=== PATIENT | female | born 1960 | race Asian ===

== ENCOUNTER 2018-01-15 09:13 | Emergency (ER) | payer OTHER ==
[~2018-01-15] VITALS: Ht 157.5 cm; Wt 84.8 kg
[~2018-01-15 09:13] MED LIST: BENTYL10 MG PO; CARV25TA PO; CIPRO500 MG PO; CRESTOR20 MG PO; CYCL10TA35 PO; DELZICOL400 MG PO; FURO40TA93 PO; KETO10TA34 PO; KLOR-CON M1010 MEQ PO; LOMOTIL2.5 MG OR; ONDA4TAB3 PO; PANTPAK PO; ROPINIROLE0.25 MG PO; SPIR25TA66 PO; XARELTO20 MG PO
[2018-01-15 10:22] LABS: PLATELET COUNT 333 K/uL (152-353)
[2018-01-15 10:42] LABS: POTASSIUM 5.1 mmol/L (3.6-5.2); SODIUM 139 mmol/L (136-145)
[2018-01-15 11:29] VITALS: BP 114/70; TEMP 97.5
== END 2018-01-15 11:34 | disposition home or self-care (01) ==
LOC: ED 09:13
PROVIDERS: Emergency Medicine
DX: R00.2 Palpitations (principal)
CPT/HCPCS: 80053; 82550; 82553; 84484; 85027; 93005; 99283

== ENCOUNTER 2018-01-15 11:37 | Outpatient (CLI) | payer OTHER | END 2018-01-15 20:19 | disposition home or self-care (01) | LOC: LABW 11:37 | DX: M10.071 Idiopathic gout, right ankle and foot (principal) | CPT/HCPCS: 36415; 84550 ==

== ENCOUNTER 2018-07-28 14:10 | Outpatient (CLI) | payer OTHER ==
[2018-07-28 15:47] LABS: PLATELET COUNT 302 K/uL (152-353)
== END 2018-07-28 19:20 | disposition home or self-care (01) ==
LOC: LABW 14:10
PROVIDERS: Internal Medicine Nephrology
DX: I63.89 Other cerebral infarction (principal); I12.9 Hypertensive chronic kidney disease with stage 1 through stage 4 chronic kidney disease, or unspecified chronic kidney disease; N18.3 Chronic kidney disease, stage 3 (moderate); I50.89 Other heart failure; I82.409 Acute embolism and thrombosis of unspecified deep veins of unspecified lower extremity; E11.9 Type 2 diabetes mellitus without complications; K21.9 Gastro-esophageal reflux disease without esophagitis; E78.49 Other hyperlipidemia; E66.8 Other obesity; K51.80 Other ulcerative colitis without complications
CPT/HCPCS: 36415; 80053; 81000; 82570; 83970; 84155; 85027

== ENCOUNTER 2018-08-23 00:35 | Inpatient (IN) | payer OTHER ==
[2018-08-23] VITALS (9 sets, daily range): BP systolic 84–139; BP diastolic 56–84; TEMP 97.2–98.2; Ht 157.5 cm; Wt 61.7 kg
[~2018-08-23] VITALS: Ht 157.5 cm; Wt 61.7 kg
[2018-08-23 01:06] LABS: PLATELET COUNT 336 K/uL (152-353)
[2018-08-23 01:13] LABS: SODIUM 141 mmol/L (136-145)
[2018-08-23 01:30] LABS: PARTIAL THROMBOPLASTIN TIME 25.4 SECONDS (24.5-33.6)
[2018-08-23] MEDS ORDERED: LIPITOR80 MG PO (06:28)
[2018-08-23] MEDS ORDERED: MESALAMINE PO (06:28)
[2018-08-23] MEDS ORDERED: CYCL10TA35 PO (06:29)
[2018-08-23] MEDS ORDERED: CARV25TA PO (06:30)
[2018-08-23] MEDS ORDERED: BUSPIRONE7.5 MG PO (06:31)
[2018-08-23] MEDS ORDERED: HYOSCYAMINE0.125 M2 PO (06:32)
[2018-08-23] MEDS ORDERED: TESSALON PER100 MG PO (06:33)
[2018-08-23] MEDS ORDERED: TRAMADOL HYDROC50 MG PO (06:33)
[2018-08-23] MEDS ORDERED: HYDR10TA47A PO (06:34)
[2018-08-23] MEDS ORDERED: ENTRESTO 24-261 TAB PO (06:34)
[2018-08-23] MEDS ORDERED: DICYCLOMINE HYD20 MG PO (06:35)
[2018-08-23] MEDS ORDERED: RANITIDINE HYD300 MG PO (06:35)
[2018-08-23] MEDS ORDERED: EZETIMIBE10 MG PO (06:36)
[2018-08-23] MEDS ORDERED: ONDANSETRON4 M2 PO (06:36)
[2018-08-23 09:06] LABS: POTASSIUM 3.5 mmol/L (3.6-5.2); SODIUM 140 mmol/L (136-145)
[2018-08-24] VITALS (69 sets, daily range): BP systolic 63–117; BP diastolic 31–73; TEMP 97.2–98.8
[2018-08-24 06:21] LABS: PLATELET COUNT 319 K/uL (152-353)
[2018-08-24 06:47] LABS: POTASSIUM 3.9 mmol/L (3.6-5.2)
[2018-08-25] VITALS (70 sets, daily range): BP systolic 82–108; BP diastolic 53–78; TEMP 97.6–98.8
[2018-08-25 05:30] LABS: PLATELET COUNT 294 K/uL (152-353)
[2018-08-25 06:13] LABS: POTASSIUM 4.2 mmol/L (3.6-5.2)
[2018-08-26] VITALS (9 sets, daily range): BP systolic 100–111; BP diastolic 64–81; TEMP 97.7–98.8
[2018-08-26 05:37] LABS: PLATELET COUNT 240 K/uL (152-353)
[2018-08-26 05:56] LABS: POTASSIUM 3.7 mmol/L (3.6-5.2)
== END 2018-08-26 15:00 | disposition home or self-care (01) | DRG 291 ==
LOC: ED 00:35 → MED/SURG 02:05 → ICU 08-24 04:05 → MED/SURG 08-24 04:06 → ICU 08-24 04:07
PROVIDERS: Student in an Organized Health Care Education/Training Program; ADMIT Family Medicine
DX: I13.0 Hypertensive heart and chronic kidney disease with heart failure and stage 1 through stage 4 chronic kidney disease, or unspecified chronic kidney disease (principal); I50.33 Acute on chronic diastolic (congestive) heart failure; N39.0 Urinary tract infection, site not specified; N18.3 Chronic kidney disease, stage 3 (moderate); I49.8 Other specified cardiac arrhythmias; D64.89 Other specified anemias; E78.00 Pure hypercholesterolemia, unspecified; K21.9 Gastro-esophageal reflux disease without esophagitis; M79.7 Fibromyalgia; Z86.711 Personal history of pulmonary embolism; I95.89 Other hypotension; Z86.718 Personal history of other venous thrombosis and embolism; Z79.01 Long term (current) use of anticoagulants
CPT/HCPCS: 36415; 80048; 80053; 81000; 82550; 83735; 83880; 84443; 84484; 85027; 85379; 85610; 85730; 87086; 87088; 93005; 94760; 96366; 96374; 99284; J1265; J1650; J1940

== ENCOUNTER 2018-10-29 11:13 | Outpatient (CLI) | payer OTHER ==
[~2018-10-29 11:13] MED LIST changes: +BUSPIRONE7.5 MG PO; +DICYCLOMINE HYD20 MG PO; +ENTRESTO 24-261 TAB PO; +EZETIMIBE10 MG PO; +HYDR10TA47A PO; +HYOSCYAMINE0.125 M2 PO; +LIPITOR80 MG PO; +MESALAMINE PO; +ONDANSETRON4 M2 PO; +RANITIDINE HYD300 MG PO; +TESSALON PER100 MG PO; +TRAMADOL HYDROC50 MG PO
== END 2018-10-29 20:12 | disposition home or self-care (01) ==
LOC: LABW 11:13
DX: M10.071 Idiopathic gout, right ankle and foot (principal)
CPT/HCPCS: 36415; 84550; 85651

== ENCOUNTER 2018-11-04 09:40 | Outpatient (CLI) | payer OTHER | END 2018-11-04 23:12 | disposition home or self-care (01) | LOC: RAD 09:40 | DX: M25.512 Pain in left shoulder (principal); M25.522 Pain in left elbow ==

== ENCOUNTER 2019-01-27 17:49 | Emergency (ER) | payer OTHER ==
[~2019-01-27] VITALS: Ht 157.5 cm; Wt 83.0 kg
[2019-01-27 19:12] LABS: PLATELET COUNT 293 K/uL (152-353)
[2019-01-27 19:23] LABS: POTASSIUM 3.9 mmol/L (3.6-5.2); SODIUM 140 mmol/L (136-145)
[2019-01-27 20:05] VITALS: BP 101/65; TEMP 97.8
== END 2019-01-27 20:05 | disposition home or self-care (01) ==
LOC: ED 17:49
PROVIDERS: Family Medicine
DX: I95.89 Other hypotension (principal); I50.9 Heart failure, unspecified; R00.0 Tachycardia, unspecified
CPT/HCPCS: 36415; 80053; 81000; 82550; 83880; 84484; 85027; 93005; 99283

== ENCOUNTER 2020-06-02 15:48 | Emergency (ER) | payer OTHER ==
[~2020-06-02] VITALS: Ht 157.5 cm; Wt 74.4 kg
[2020-06-02 16:03] VITALS: TEMP 97
[2020-06-02 17:07] VITALS: BP 94/62
== END 2020-06-02 17:08 | disposition home or self-care (01) ==
LOC: ED 15:48
DX: M54.5 Low back pain (principal); G89.29 Other chronic pain; M54.16 Radiculopathy, lumbar region
CPT/HCPCS: 96372; 99283; J1885; J2360

== ENCOUNTER 2020-12-07 18:02 | Emergency (ER) | payer OTHER ==
[~2020-12-07] VITALS: Ht 157.5 cm; Wt 72.6 kg
[2020-12-07 19:13] VITALS: BP 111/78; TEMP 98.1
== END 2020-12-07 19:13 | disposition home or self-care (01) ==
LOC: ED 18:02
DX: M54.32 Sciatica, left side (principal); M54.31 Sciatica, right side; M79.604 Pain in right leg
CPT/HCPCS: 96372; 99283; J1885

== ENCOUNTER 2020-12-14 05:51 | Outpatient (CLI) | payer OTHER ==
[2020-12-14 06:37] LABS: PLATELET COUNT 285 K/uL (152-353)
[2020-12-14 07:26] LABS: POTASSIUM 4.7 mmol/L (3.6-5.2)
== END 2020-12-14 19:13 | disposition home or self-care (01) ==
LOC: LABW 05:51
PROVIDERS: ATTEND Internal Medicine
DX: I12.9 Hypertensive chronic kidney disease with stage 1 through stage 4 chronic kidney disease, or unspecified chronic kidney disease (principal); N18.30 Chronic kidney disease, stage 3 unspecified; E78.49 Other hyperlipidemia; E11.9 Type 2 diabetes mellitus without complications
CPT/HCPCS: 36415; 80053; 80061; 82550; 83036; 85027; 86140

== ENCOUNTER 2021-09-17 12:31 | Emergency (ER) | payer OTHER ==
[~2021-09-17] VITALS: Ht 157.5 cm; Wt 72.6 kg
[2021-09-17 12:37] VITALS: TEMP 97.9
[2021-09-17 13:03] LABS: PLATELET COUNT 304 K/uL (152-353)
[2021-09-17 14:26] VITALS: BP 97/66
== END 2021-09-17 14:27 | disposition home or self-care (01) ==
LOC: ED 12:31
PROVIDERS: Hospitalist
DX: K52.89 Other specified noninfective gastroenteritis and colitis (principal); R11.2 Nausea with vomiting, unspecified; R19.7 Diarrhea, unspecified; E86.0 Dehydration
CPT/HCPCS: 80053; 80320; 81002; 83690; 84484; 85027; 93005; 96360; 96365; 96375; 99284; J0696; J2405

== ENCOUNTER 2022-04-18 22:43 | Emergency (ER) | payer OTHER ==
[~2022-04-18] VITALS: Ht 157.5 cm; Wt 72.6 kg
[2022-04-18 22:50] VITALS: TEMP 97
[2022-04-18 23:31] LABS: PLATELET COUNT 273 K/uL (152-353)
[2022-04-18 23:43] LABS: POTASSIUM 4.3 mmol/L (3.6-5.2)
[2022-04-19 03:40] VITALS: BP 104/77
== END 2022-04-19 03:40 | disposition home or self-care (01) ==
LOC: ED 22:43
PROVIDERS: Emergency Medicine Emergency Medical Services
DX: R53.1 Weakness (principal); E83.42 Hypomagnesemia; I50.9 Heart failure, unspecified
CPT/HCPCS: 36415; 80053; 80162; 81002; 83735; 83880; 84484; 85027; 93005; 96365; 96366; 96375; 99284; J2405; J3475

== ENCOUNTER 2022-06-01 22:53 | Emergency (ER) | payer OTHER ==
[~2022-06-01] VITALS: Ht 157.5 cm; Wt 75.8 kg
[2022-06-01 23:48] LABS: PLATELET COUNT 193 K/uL (152-353)
[2022-06-01 23:50] LABS: POTASSIUM 4.5 mmol/L (3.6-5.2)
[2022-06-02 02:40] VITALS: BP 104/82; TEMP 98.5
== END 2022-06-02 02:40 | disposition home or self-care (01) ==
LOC: ED 22:53
PROVIDERS: Internal Medicine
DX: K52.89 Other specified noninfective gastroenteritis and colitis (principal)
CPT/HCPCS: 36415; 80053; 85027; 96360; 96361; 99284

== ENCOUNTER 2022-06-06 16:54 | Outpatient (CLI) | payer OTHER | END 2022-06-06 19:41 | LOC: LABW 16:54 | PROVIDERS: ATTEND Internal Medicine Cardiovascular Disease | DX: N28.89 Other specified disorders of kidney and ureter (principal); I50.9 Heart failure, unspecified | CPT/HCPCS: 36415; 80048; 83880 ==